=== PATIENT | female | born 1980 | race Caucasian/White ===

== ENCOUNTER → 2016-06-16 | Outpatient (CLI) | payer OTHER ==
[2016-06-16 14:20] LABS: BASO % 0.6 % (0.0-1.0); EOS # 0.1 K/mm3 (0.0-0.50); EOS % 1.3 % (0.0-3.0); LARGE UNSTAINED CELL # 0.1 K/mm3 (0.0-0.4); LARGE UNSTAINED CELL % 1.5 % (0.0-4.0); LYMPH % 36.6 % (24.0-44.0); MEAN CORPUSCULAR HEMOGLOBIN 31.6 pg (27.0-33.0); MEAN CORPUSCULAR HGB CONC 31.9 g/dl (32.0-36.5); MEAN CORPUSCULAR VOLUME 99.1 fl (80.0-96.0); MONO # 0.3 K/mm3 (0.0-0.8); MONO % 4.9 % (0.0-5.0); NEUTROPHILS % 55.1 % (36.0-66.0); PLATELET COUNT, AUTOMATED 250 k/mm3 (150-450); WHITE BLOOD COUNT 5.4 K/mm3 (4.0-10.0)
[2016-06-16 14:36] LABS: ALBUMIN 3.8 GM/DL (3.2-5.2); ALBUMIN/GLOBULIN RATIO 1.06 (1.00-1.93); ALKALINE PHOSPHATASE 87 U/L (45-117); ALT/SGPT 12 U/L (12-78); ANION GAP 6 MEQ/L (8-16); AST/SGOT 9 U/L (15-37); BILIRUBIN,TOTAL 0.6 MG/DL (0.2-1.0); BLOOD UREA NITROGEN 8 MG/DL (7-18); CALCIUM LEVEL 8.6 MG/DL (8.5-10.1); CARBON DIOXIDE LEVEL 29 MEQ/L (21-32); CHLORIDE LEVEL 105 MEQ/L (98-107); CHOLESTEROL LEVEL 154 MG/DL (<200); CREATININE FOR GFR 1.09 MG/DL (0.55-1.02); GLOMERULAR FILTRATION RATE > 60.0 (>60); GLUCOSE, FASTING 91 MG/DL (70-105); POTASSIUM SERUM 4.5 MEQ/L (3.5-5.1); SODIUM LEVEL 140 MEQ/L (136-145); TOTAL PROTEIN 7.4 GM/DL (6.4-8.2); TRIGLYCERIDES LEVEL 73 MG/DL (<150)
== END ==
LOC: M WUC 08:59
PROVIDERS: ATTEND Emergency Medicine
DX: F43.23 Adjustment disorder with mixed anxiety and depressed mood (principal)

== ENCOUNTER 2016-07-14 09:31 | Inpatient (IN) | payer OTHER ==
[~2016-07-14] VITALS: Ht 162.6 cm; Wt 77.2 kg
[2016-07-14] MEDS ORDERED: VITA50003 PO (09:39)
[2016-07-14] MEDS ORDERED: LEXA1TAB2 PO (09:39)
[2016-07-14 10:13] LABS: MEAN CORPUSCULAR HEMOGLOBIN 32.1 pg (27.0-33.0); MEAN CORPUSCULAR HGB CONC 33.9 g/dl (32.0-36.5); MEAN CORPUSCULAR VOLUME 94.7 fl (80.0-96.0); RED CELL DISTRIBUTION WIDTH 12.2 % (11.5-14.5); WHITE BLOOD COUNT 5.6 K/mm3 (4.0-10.0)
[2016-07-14 10:21] LABS: CONTROL LINE HCG INT CTR LINE PRESENT
[2016-07-14 10:38] LABS: ALBUMIN 3.9 GM/DL (3.2-5.2); ALBUMIN/GLOBULIN RATIO 1.08 (1.00-1.93); ALKALINE PHOSPHATASE 80 U/L (45-117); ALT/SGPT 15 U/L (12-78); ANION GAP 6 MEQ/L (8-16); AST/SGOT 15 U/L (15-37); BILIRUBIN,DIRECT 0.2 MG/DL (0.0-0.2); BILIRUBIN,TOTAL 0.7 MG/DL (0.2-1.0); BLOOD UREA NITROGEN 11 MG/DL (7-18); CARBON DIOXIDE LEVEL 28 MEQ/L (21-32); CHLORIDE LEVEL 106 MEQ/L (98-107); CREATININE FOR GFR 1.03 MG/DL (0.55-1.02); GLOMERULAR FILTRATION RATE > 60.0 (>60); GLUCOSE, FASTING 85 MG/DL (70-105); POTASSIUM SERUM 4.1 MEQ/L (3.5-5.1); SODIUM LEVEL 140 MEQ/L (136-145); TOTAL PROTEIN 7.5 GM/DL (6.4-8.2)
[2016-07-14 12:02] LABS: METHADONE URINE NEGATIVE (NEGATIVE)
[2016-07-14] MEDS ORDERED: LORA10TA2 PO (13:56)
[2016-07-14 15:04] VITALS: BP 133/75
[2016-07-14] MEDS ORDERED: MOM 30ML SUSPENSION UDC PO PRN (16:45)
[2016-07-14] MEDS ORDERED: traZODone 50 MG TAB PO PRN (16:45)
[2016-07-14] MEDS ORDERED: MAALOX 30 ML SUSP *UDC PO PRN (16:45)
[2016-07-14] MEDS ORDERED: ACETAMINOPHEN TAB 650MG DOSE (2X325MG) PO PRN (16:45)
[2016-07-15 06:18] VITALS: BP 115/56
--- NOTE | 2016-07-15 09:20 | HPEPDOC ---
Medical History and Physical Date of Admission July 14, 2016 at 13:26 History and Physical PCP: Dr Sun. ATTENDING: Dr. Bola Bae HPI: 36 yo F admitted to [facility] for depressive disorder, being medically examined today. No acute medical complaints today. Denies any fevers, chills, weakness, fatigue, GREGORIO, CP, SOB, cough, palpitations, abdominal pain, N/V/D or changes in bowel or bladder habits. PMHx: Depression Anxiety Self-mutilation Allergic rhinitis Vitamin D deficiency PSHX: Tubal ligation SOCHX: Resides in: [facility] Marital Status: Kids: 6 Employment: Unemployed Tobacco use: Denies ETOH: Denies Illicit Drugs: Denies IV Drug Use: Denies Tattoos done unprofessionally: Denies FAMHX: Mother: Alive, depression Father: Alive, well Siblings: 2 brothers Alive, well Children: Alive, well Unexpected deaths due to medical reasons: None. ROS: As noted in HPI, otherwise 11pt ROS of systems reviewed and remarkable only for LMP 07/07/16 PE: GEN: 36 yo F, appears stated age. Well-nourished, well developed. No acute distress. Alert and oriented x 3. Pleasant, interactive. HEENT: Normocephalic, atraumatic. Pupils are equal, round, and reactive to light. Extraocular movements are intact. No nystagmus appreciated. Sclera are nonicteric. Conjunctiva without injection. Nose midline. Nasal turbinates without bogginess. EACs both patent BL. TMs both visualized and mccauley with good cone of light, no bulging or erythema. No facial asymmetry. Moist mucous membranes. Dentition fair. Pharynx pink and moist, no cobblestoning. Neck supple , trachea midline. No lymphadenopathy or thyromegaly appreciated. CHEST: Regular rate and rhythm, +S1, +S2 LUNGS: Clear to auscultation bilaterally. No wheezes, rales, or rhonchi. Breathing appears symmetric and easy. Patient is speaking in full sentences. No accessory muscle use. ABD: Round, soft, non-tender, non-distended. +Bowel sounds throughout. No rebound or guarding. No costovertebral angle tenderness. EXT: Pulses 2+ bilaterally dorsalis pedis and radial. No lower extremity edema appreciated. SKIN: [place], dry, warm. Capillary refill <2sec. No rashes. Superficial healing lacerations are noted left shoulder. No erythema, no drainage. NEURO: Alert and oriented x 3. Cranial nerves III-XII are intact. No focal deficits appreciated. EKG: Pending. A&P: HPI: 36 yo F admitted to [facility] for depressive disorder 1. Psych. Plan per Psychiatry. Obtain baseline EKG to assure the safety of psychiatric medications as they can prolong the QT interval. 2. Superficial laceration. Appears to be healing well. Monitor. 3. Follow up with PCP on discharge. 4. Vitamin D deficiency. Continue Drisdol weekly. Update vitamin D level. 5. Allergic rhinitis. Continue Claritin 10 mg daily as needed. 6. Karolyn BAKER present throughout exam. Vital Signs Vital Signs Date Time Temp Pulse Resp B/P (MAP) Pulse Ox O2 Delivery O2 Flow Rate FiO2 07/15/16 06:18 98.8 66 16 115/56 (75) 07/14/16 15:04 97 Room Air Laboratory Data Labs 24H Laboratory Tests 2 07/14/16 10:04: Anion Gap 6L, Glomerular Filtration Rate > 60.0, Calcium Level 9.0, Aspartate Amino Transf (AST/SGOT) 15, Alanine Aminotransferase (ALT/SGPT) 15, Alkaline Phosphatase 80, Total Bilirubin 0.7, Direct Bilirubin 0.2, Total Protein 7.5, Albumin 3.9, Albumin/Globulin Ratio 1.08, Thyroid Stimulating Hormone (TSH) 1.260, Human Chorionic Gonadotropin, Qual NEGATIVE, Salicylates Level < 1.7L, Acetaminophen Level < 2.0L, Ethyl Alcohol Level < 0.003 07/14/16 11:15: Urine Amphetamines Screen NEGATIVE, Urine Benzodiazepines Screen NEGATIVE, Urine Opiates Screen NEGATIVE, Urine Methadone Screen NEGATIVE, Urine Barbiturates Screen NEGATIVE, Urine Phencyclidine Screen NEGATIVE, Urine Cocaine Metabolite Screen NEGATIVE, Urine Cannabinoids Screen NEGATIVE CBC/BMP Laboratory Tests 07/14/16 10:04 Red Blood Count 4.41, Mean Corpuscular Volume 94.7, Mean Corpuscular Hemoglobin 32.1, Mean Corpuscular Hemoglobin Concent 33.9, Red Cell Distribution Width 12.2 Home Medications Scheduled Ergocalciferol (Vitamin D) 50,000 Unit Cap, 50,000 UNIT PO 1XWK wednesdays Escitalopram Oxalate (Lexapro) 20 Mg Tab, 20 MG PO DAILY pt has not been taking as prescribed Scheduled PRN Loratadine (Loratadine) 10 Mg Tab, 10 MG PO DAILY PRN for allergies Allergies Coded Allergies: No Known Drug Allergy (Verified Allergy, Unknown, 07/14/16) Gladys Madden July 15, 2016 09:20
[2016-07-15] MEDS ORDERED: LORATADINE 10 MG TAB PO PRN (09:30)
[2016-07-15] MEDS: VENLAFAXINE **XR** 37.5 MG CAPSULE PO SCH (12:07)
--- NOTE | 2016-07-15 13:26 | MHHPE ---
DATE OF ADMISSION: 07/14/2016 LEGAL STATUS ON ADMISSION: 9.39 legal status. CHIEF COMPLAINT: "I have been feeling depressed and I have suicidal thoughts." HISTORY OF PRESENT ILLNESS: 36-year-old female with a history of depression, admitted to our unit in a 9.39 legal status. According to the chart, the patient was evaluated at the emergency department for increased depression, suicidal ideation. Feelings were escalating for the past 2 weeks. The patient stated that she has a bottle of older pills that are narcotics and she was considering overdosing. The patient also reported that she has a remote history of cutting herself and also says that she was cutting nightly for the last month or so. Said that on one occasion she cut deeply enough that probably was in need of sutures, but she did not come to the hospital. She is motivated for treatment. The patient denies auditory or visual hallucinations or delusions. The patient also denies the use of drugs or alcohol. The patient has been admitted three times in the past for depression and suicidal ideation. Her is deployed since March and is supposed to return in January of this year. The patient reports that she has a friend that lives around town that is part of her support now that her is away. During the interview today, the patient reports feeling depressed with anhedonia/lost interest, no energy. The patient feels overwhelmed. She has six children at home, ages 14, 11, 10, 8, 6, and 4. The patient also reports negative thinking and her self esteem fluctuations, as does her appetite. The patient reports that she wakes up a lot. The patient also reports mood swings, says that when she has a down swing that it can last for about 6 months. She says that she has been treated with medications, but "I stopped taking it because of side effects." The patient reports intermittent suicidal thoughts along with these thoughts. Reports thinking like, "nothing will get better." She also says that she feels numb and disconnected. This is related to the cutting. She says that she started in college and did it frequently, but then she stopped and she reports that she started one month ago and has been doing it nightly. The patient is insightful and willing to get help. The patient is unable to contract for safety and is afraid that she may end up hurting herself. PAST MEDICAL HISTORY: The patient has no acute medical problems. No known drug allergies. PAST PSYCHIATRIC HISTORY: As above, the patient has been diagnosed of depression. Has three admissions to inpatient psychiatry, one in 1995, 2004 and 2013 for depression and suicidal ideation. FAMILY HISTORY: Positive for depression on her mother and she thinks her brother also has depression. No substance abuse in the family. SUBSTANCE ABUSE HISTORY: The patient denies any current or past problems with drugs or alcohol. SOCIAL HISTORY: The patient was raised by both of her parents. The patient reports a completely normal childhood with no abuse or neglect. The patient reports being shy with tendency to low self esteem. She graduated high school and went to college. She graduated and she got a Bachelor's degree in psychology and a Master's on behavioral analysis. She has been for the last 15 years and has six children. She is the of an active duty soldier. Her is deployed since February of this year. The patient reports that the relationship with her is supportive and they have no problems. REVIEW OF SYSTEMS: CONSTITUTIONAL: No weight loss, fever, chills, weakness or fatigue. HEENT: No visual loss, blurry vision, double vision, or yellow sclerae. No hearing loss, sneezing, congestion, runny nose or sore throat. SKIN: No rash or itching. CARDIOVASCULAR: No chest pain, chest pressure, chest discomfort, palpitations, or edema. RESPIRATORY: No shortness of breath, cough or sputum. GASTROINTESTINAL: No anorexia, nausea, vomiting, or diarrhea. No abdominal pain or blood. GENITOURINARY: No burning or pain on urination. NEUROLOGICAL: No headache, dizziness, syncope, paralysis, ataxia, numbness or tingling. MUSCULOSKELETAL: No muscle or back pain, joint pain or stiffness. HEMATOLOGIC: No anemia, bleeding or bruising. LYMPHATICS: No history of splenectomy. ENDOCRINOLOGIC: No reports of sweating, cold or heat intolerance. No polyuria, polydipsia. ALLERGIES: No history of asthma, hives, eczema or rhinitis. PHYSICAL EXAMINATION: As per physician's certified ophthalmic surgical assistant. LABS AT ADMISSION: CBC is unremarkable. CMP within normal limits. TSH is unremarkable. test is negative. Urine drug screen is negative. Blood alcohol level is negative. MENTAL STATUS EXAMINATION: The patient is dressed in [facility]. Patient is cooperative during the interview. Speech is soft and monotone. Has fair eye contact. Mood is depressed and anxious. Affect is labile, at times tearful. Patient is oriented to time, place, person and situation. Maintains attention and concentration correctly. Instant recall, instant and remote memory are intact. Thought processes are coherent, logical and goal directed. Patient does not have auditory or visual hallucinations. Patient does not have paranoid, persecutory, somatic, grandiose, or restorationist delusions. Patient is denying suicidal or homicidal ideation. Judgment and insight are fair. DIAGNOSES: [place] I: Major depressive disorder. Sav[place] II: Deferred. Sav[place] III: None acute. INITIAL TREATMENT PLAN: Patient was admitted on legal status. Complete history was obtained. With her permission, family will be contacted and database will be expanded. Her medication regimen will be reviewed and changed accordingly. She will be provided with protected environment. She will be treated with individual, group and milieu therapy. She will also receive supportive psychoeducation. Discharge planning will commence immediately. Length of stay will be between 5 and 7 days. Outpatient followup will be strongly recommended. The treatment plan will focus initially on depression and risk for suicide.
[2016-07-15 18:42] VITALS: BP 119/60
[2016-07-16 07:03] VITALS: BP 129/81
[2016-07-16] MEDS: VENLAFAXINE **XR** 37.5 MG CAPSULE PO SCH (08:48)
[2016-07-16] MEDS ORDERED: VENLAFAXINE **XR** 37.5 MG CAPSULE PO ONE (12:00)
--- NOTE | 2016-07-16 15:10 | IPN ---
DATE: 07/16/2016 A 36-year-old female with history of depression admitted on 30 legal status. The patient had increased symptoms of depression, suicidal ideation, and was displaying self-injurious behavior. SUBJECTIVE: "I feel about the same." OBJECTIVE: No major changes from yesterday at admission. The patient has tolerated well the initial dose of Effexor and denies any side effects. The patient also said that she slept better with the help of trazodone. No evidence of psychotic features. The patient is able to contract for safety while in the hospital. MENTAL STATUS EXAMINATION: The patient is dressed in [facility]. The patient is cooperative. She has fair eye contact. Speech is slow and monotone. Mood is depressed and anxious. Affect is congruent with mood. No delusions or hallucinations. Memory, attention and concentration are fair. The patient reports intermittent suicidal thoughts. No homicidal ideation. Insight and judgment is limited. ASSESSMENT: 1. Depression. 2. Suicidal ideation. 3. Self cutting. PLAN: 1. Increase Effexor to 75 mg by mouth every morning. 2. Continue with trazodone 50 mg by mouth at bedtime as needed for insomnia. 3. Continue close observation. 4. Continue medication management, individual and group therapy.
[2016-07-16 18:00] VITALS: BP 118/71
--- NOTE | 2016-07-16 20:42 | ECGEPIP ---
Stationary ECG Study [facility] Test Date: 2016-07-15 Pat Name: HOLLEY ANDREA Department: Room: [place] [address] Gender: F Scarf [employer] Anneal Operator: ALFREDA : 1980 Requested By: Gladys Madden Order Number: [id number] Reading MD: Bola Julien Measurements Intervals [place] Rate: 53 P: 60 [place]: 129 QRS: 74 QRSD: 101 T: 80 QT: 429 QTc: 404 Interpretive Statements SINUS BRADYCARDIA Nonspecific ST-T abnormalities. No prior ECG available for comparison at the time of interpretation. Electronically Signed On 07-16-2016 20:42:01 EDT by Bola Julien
[2016-07-17 06:00] VITALS: BP 117/68
[2016-07-17] MEDS: VENLAFAXINE **XR** 75MG CAPSULE PO SCH (08:48)
--- NOTE | 2016-07-17 16:18 | IPN ---
DATE: 07/17/2016 A 36-year-old female with a history of depression, admitted for severe depression, suicidal ideation and self-injurious behavior. SUBJECTIVE: "I'm feeling better." OBJECTIVE: The patient is improving slowly, continues depressed, but she is no longer labile or displaying psychomotor retardation. The patient is interacting better with other patients and staff. The patient is denying side effects from the medications. No evidence of psychotic features. MENTAL STATUS EXAMINATION: The patient is dressed in [facility]. The patient is cooperative during exam, has fair eye contact. Speech is slow and monotone. Mood is depressed and anxious but slightly improved from yesterday. Affect is congruent with mood. No delusions or hallucinations. Memory, attention and concentration are fair. The patient is able to contract for safety and denies suicidal or homicidal ideation during the interview. The patient has no urge to cut in the last 24 hours. Insight and judgment is limited. ASSESSMENT: 1. Depression. 2. Suicidal ideation. 3. Self cutting. PLAN: 1. Continue with Effexor XR 75 mg by mouth every morning. 2. Continue with trazodone 50 mg by mouth nightly as needed for insomnia. 3. Continue medication management, individual and group therapy.
[2016-07-17 18:00] VITALS: BP 129/75
[2016-07-18 06:10] VITALS: BP 110/53
[2016-07-18] MEDS: VENLAFAXINE **XR** 75MG CAPSULE PO SCH (08:34)
[2016-07-18 18:11] VITALS: BP 130/63
--- NOTE | 2016-07-19 03:00 | IPN ---
DATE OF SERVICE: 07/18/2016 The patient states "I'm doing pretty good." She says her mood is about a 4/10 with the closer to 10 as the most depressed. She says that she slept fairly good with the trazodone and has no complaints. MENTAL STATUS EXAMINATION: This patient is alert and oriented times three. Eye contact is good. She is verbally spontaneous. There is no formal thought disorder. Mood is "better." Affect full range and appropriate. She is not psychotic. Concentration is fair. Memory intact. Insight and judgment is fair. DIAGNOSIS: Major depressive disorder, recurrent, severe without psychotic symptoms. TREATMENT PLAN: At this point, we will further observe and evaluate the patient for continued resolution of suicidal ideations and for further stabilization of her mood and we will continue to titrate her medications as indicated.
[2016-07-19 06:00] VITALS: BP 110/53
[2016-07-19] MEDS: VENLAFAXINE **XR** 75MG CAPSULE PO SCH (08:22)
[2016-07-19 18:00] VITALS: BP 130/78
[2016-07-20 06:42] VITALS: BP 100/62
[2016-07-20] MEDS: VENLAFAXINE **XR** 75MG CAPSULE PO SCH (08:02)
[2016-07-20] MEDS ORDERED: VENL75CA PO (10:17)
--- NOTE | 2016-07-20 15:29 | MHDS ---
DATE OF ADMISSION: 07/14/2016 DATE OF DISCHARGE: 07/20/2016 LEGAL STATUS AT ADMISSION: 9.39 legal status. HISTORY OF PRESENT ILLNESS: A 36-year-old female with history of depression admitted to our unit under 9.39 legal status. According to the chart, the patient was evaluated at our emergency department (ED) for increased depression and suicidal ideation. The patient reported that her symptoms were escalating for the past two weeks. She stated that she had a bottle of older pills that are narcotics and she was considering overdosing. The patient also reported that she has a remote history of cutting herself and she was cutting herself nightly for the last month or so. She said that on one occasion she cut deeply enough that she probably needed to have sutures. However, she did not come to the hospital. She was motivated for treatment. The patient denied any auditory or visual hallucinations. There was no evidence of delusions. The patient also denied any use of drugs or alcohol. The patient has been admitted three times in the past for depression and suicidal ideation. Her is currently deployed. He is in active duty and he is supposed to return in January 2017. since March and is supposed to return in January of this year. During the interview, the patient reports feeling depressed, anhedonia, low energy. The patient feels overwhelmed. She has six children at home, ages 14, 11, 10, 8, 6, and 4. The patient reports negative thinking and her self-esteem fluctuates. Her appetite also fluctuates. She reports that she wakes up frequently during the night. The patient also reports mood swings and that when she has a low swing, she can stay depressed for six months. The patient reports that she has been treated with medications in the past, but "I stopped taking them because of side effects." The patient reports intermittent suicidal thoughts during the interview. The patient states that she has a tendency to think, "nothing will get better." The patient also feels numb and disconnected. These symptoms are related to her cutting. The patient reports that during college she did it frequently, but then she stopped "for awhile," and restarted approximately a month ago. She has been doing it nightly. She wants to get help. She was unable to contract for safety and she was afraid that she may end up hurting herself. LABORATORY DATA AT ADMISSION: Her CBC was unremarkable. CMP within normal limits. TSH is within normal limits. HCG is negative. Urine drug screen negative. Blood alcohol level is negative. HOSPITAL COURSE: After the first evaluation, the patient was started on Effexor XR 37.5 mg by mouth every morning. She tolerated well the medication. She took trazodone 50 mg as needed for insomnia the first night but then she did not require to take this medication. With the above medication, the patient was stabilized. The patient had no complications during this hospital admission. She was motivated for treatment. Her mood improved rather quick after the hospitalization. At the moment of discharge, the patient is insightful and motivated. She wants to continue taking her treatment and following up appointments. She is denying side effects from the medication. There is no evidence of psychotic symptoms. No auditory or visual hallucinations or delusions. MENTAL STATUS EXAMINATION AT DISCHARGE: The patient is dressed in [facility]. The patient is calm and cooperative. Speech is clear, coherent with normal rate and is spontaneous. The patient has fair eye contact. Mood is euthymic. Affect is congruent with mood and appropriate. The patient is oriented to time, place, person and situation. She maintains attention and concentration correctly. Instant recall, recent and remote memory are intact. Thought processes are coherent, logical, and goal-directed. The patient does not have auditory or visual hallucinations. The patient does not have paranoid, persecutory, somatic, grandiose, or orthodoxy delusions. The patient denies suicidal or homicidal ideation. Insight and judgment are fair. DISCHARGE MEDICATIONS: Effexor XR 75 mg by mouth every morning. DIAGNOSES: AXIS I: Major depressive disorder. AXIS II: Deferred. AXIS III: Nonacute. CONDITION AT DISCHARGE: Stable. No suicidal or homicidal ideation. No auditory or visual hallucinations. No delusions. INSTRUCTIONS TO THE PATIENT: The patient is to continue taking her medications as prescribed and followup appointments. She is advised to maintain absolute sobriety from drugs and alcohol. The patient has scheduled appointment for medication management, individual and group therapy, and primary care physician.
== END 2016-07-20 12:25 | disposition home or self-care (01) | DRG 885 ==
LOC: M ED 10:01 → M ED INP 13:26 → M PSY 15:00
PROVIDERS: ADMIT Psychiatry & Neurology Psychiatry; ATTEND Psychiatry & Neurology Psychiatry
DX: F33.2 Major depressive disorder, recurrent severe without psychotic features (principal); R45.851 Suicidal ideations; E55.9 Vitamin D deficiency, unspecified; J30.9 Allergic rhinitis, unspecified; Z79.899 Other long term (current) drug therapy; Z98.51 Tubal ligation status; Z91.5 Personal history of self-harm

== ENCOUNTER → 2017-01-26 | Outpatient (CLI) | payer OTHER ==
[~2017-01-26] MED LIST: LEXA1TAB2 PO; LORA10TA2 PO; PERC5TAB12 PO; VENL75CA2 PO; VIIB40TA PO; VITA1CAP40 PO; ZOFR4TAB3 PO
--- NOTE | 2017-01-26 16:24 | REP ---
KUB: Two views. History: Right-sided abdominal pain. No comparison views. Findings: A vaginal tampon is noted in place. There is a 2.4 cm peripherally calcified nodular density in the right upper quadrant of the abdomen. This moves with respect to the renal contour on the two-view submitted and is most compatible with gallbladder calculus. The bowel gas pattern is unremarkable. There are two metallic clamps projecting over the left mid and left upper abdomen. The patient gives a history of bilateral tubal ligation. These are compatible with dislodged tubal ligation clamps. Flank stripes and psoas margins are intact. No mass organomegaly is seen. Impression: 1. 2.4 cm calcification right upper quadrant consistent with gallstone or gallstones. 2. Dislodged tubal ligation clamps projecting in the left mid and upper abdomen. 3. Otherwise unremarkable abdominal films. Signed by Hernán Montenegro MD 01/27/2017 02:43 P
[2017-01-26 16:37] LABS: BASO # 0.1 10^3/uL (0.0-0.2); BASO % 0.9 % (0.0-1.0); EOS # 0.1 10^3/uL (0.0-0.50); EOS % 2.1 % (0.0-3.0); IMMATURE GRANULOCYTE % 0.3 % (0-0); LYMPH # 2.6 10^3/uL (1.5-4.5); LYMPH % 37.9 % (24.0-44.0); MEAN CORPUSCULAR HGB CONC 34.3 g/dl (32.0-36.5); MEAN CORPUSCULAR VOLUME 93.3 fl (80.0-96.0); MONO # 0.5 10^3/uL (0.0-0.8); MONO % 7.1 % (0.0-5.0); NEUTROPHILS # 3.5 10^3/uL (1.8-7.7); NEUTROPHILS % 51.7 % (36.0-66.0); PLATELET COUNT, AUTOMATED 232 10^3/uL (150-450); WHITE BLOOD COUNT 6.7 10^3/uL (4.0-10.0)
[2017-01-26 17:08] LABS: ALBUMIN/GLOBULIN RATIO 1.11 (1.00-1.93); ALKALINE PHOSPHATASE 79 U/L (45-117); ALT/SGPT 15 U/L (12-78); AMYLASE 75 U/L (25-115); ANION GAP 5 MEQ/L (8-16); AST/SGOT 13 U/L (7-37); BILIRUBIN,TOTAL 0.5 MG/DL (0.2-1.0); BLOOD UREA NITROGEN 8 MG/DL (7-18); CALCIUM LEVEL 8.7 MG/DL (8.5-10.1); CARBON DIOXIDE LEVEL 28 MEQ/L (21-32); CHLORIDE LEVEL 109 MEQ/L (98-107); GLOMERULAR FILTRATION RATE > 60.0 (>60); GLUCOSE, FASTING 88 MG/DL (70-105); POTASSIUM SERUM 4.2 MEQ/L (3.5-5.1); SODIUM LEVEL 142 MEQ/L (136-145); TOTAL PROTEIN 7.6 GM/DL (6.4-8.2)
== END ==
LOC: M WUC 14:44
PROVIDERS: ATTEND Physician Assistant
DX: R10.11 Right upper quadrant pain (principal)

== ENCOUNTER → 2017-01-28 | Outpatient (CLI) | payer OTHER ==
--- NOTE | 2017-01-28 10:07 | REP ---
RIGHT UPPER QUADRANT ULTRASOUND: Real-time sonographic evaluation of the right upper quadrant performed. The gallbladder is contracted and contains multiple stones. There does not appear to be significant gallbladder wall thickening or acute edematous change. There is no pericholecystic fluid. There is no intrahepatic or extrahepatic biliary dilatation, common bile duct measuring 3 mm in diameter. Liver and pancreas demonstrate homogeneous echotexture with no gross mass. Right kidney demonstrates no hydronephrosis or nephrolithiasis with normal size at 10 cm in length. The visualized abdominal aorta is normal in caliber. IMPRESSION: Contracted gallbladder containing multiple calculi with no acute wall thickening, pericholecystic fluid or biliary dilatation. Signed by Rudy Garcia MD 01/28/2017 10:36 A
== END ==
LOC: M RAD 07:35
PROVIDERS: ATTEND Physician Assistant
DX: K80.20 Calculus of gallbladder without cholecystitis without obstruction (principal)

== ENCOUNTER 2017-01-29 14:30 | Emergency (ER) | payer OTHER ==
[~2017-01-29] VITALS: Ht 162.6 cm; Wt 77.3 kg
[~2017-01-29 14:30] MED LIST changes: -PERC5TAB12 PO; -VIIB40TA PO; -ZOFR4TAB3 PO
[2017-01-29] MEDS ORDERED: VIIB40TA PO (14:43)
[2017-01-29] MEDS ORDERED: ONDANSETRON 4 MG ORAL DISINTEGRATING TAB (S0181) PO ONE (15:15)
[2017-01-29] MEDS ORDERED: NS 1,000 ML IV ONE (15:15)
[2017-01-29 15:24] LABS: BASO # 0.1 10^3/uL (0.0-0.2); BASO % 1.2 % (0.0-1.0); EOS # 0.1 10^3/uL (0.0-0.50); EOS % 1.9 % (0.0-3.0); IMMATURE GRANULOCYTE % 0.3 % (0-0); LYMPH # 3.1 10^3/uL (1.5-4.5); LYMPH % 44.8 % (24.0-44.0); MEAN CORPUSCULAR HEMOGLOBIN 31.5 pg (27.0-33.0); MEAN CORPUSCULAR HGB CONC 33.9 g/dl (32.0-36.5); MEAN CORPUSCULAR VOLUME 92.9 fl (80.0-96.0); MONO # 0.5 10^3/uL (0.0-0.8); MONO % 7.1 % (0.0-5.0); NEUTROPHILS # 3.1 10^3/uL (1.8-7.7); NEUTROPHILS % 44.7 % (36.0-66.0); PLATELET COUNT, AUTOMATED 246 10^3/uL (150-450); RED CELL DISTRIBUTION WIDTH 11.9 % (11.5-14.5); WHITE BLOOD COUNT 6.9 10^3/uL (4.0-10.0)
[2017-01-29 15:50] LABS: ALBUMIN 4.1 GM/DL (3.2-5.2); ALBUMIN/GLOBULIN RATIO 1.14 (1.00-1.93); ALKALINE PHOSPHATASE 77 U/L (45-117); ALT/SGPT 15 U/L (12-78); ANION GAP 8 MEQ/L (8-16); AST/SGOT 12 U/L (7-37); BILIRUBIN,TOTAL 0.5 MG/DL (0.2-1.0); BLOOD UREA NITROGEN 10 MG/DL (7-18); CALCIUM LEVEL 8.6 MG/DL (8.5-10.1); CARBON DIOXIDE LEVEL 24 MEQ/L (21-32); CHLORIDE LEVEL 107 MEQ/L (98-107); CREATININE FOR GFR 1.03 MG/DL (0.55-1.02); GLOMERULAR FILTRATION RATE > 60.0 (>60); GLUCOSE, FASTING 90 MG/DL (70-105); POTASSIUM SERUM 4.2 MEQ/L (3.5-5.1); SODIUM LEVEL 139 MEQ/L (136-145); TOTAL PROTEIN 7.7 GM/DL (6.4-8.2)
[2017-01-29 16:01] LABS: MUCUS, URINE RFX SMALL (NEGATIVE); SPECIFIC GRAVITY UR AUTO RFX 1.014 (1.002-1.035); SQUAM EPITHELIAL CELL UR AURFX 3 /HPF (0-6)
[2017-01-29] MEDS ORDERED: ZOFR4TAB3 PO (16:14)
[2017-01-29] MEDS ORDERED: PERC5TAB12 PO (16:15)
[2017-01-29 16:24] VITALS: BP 126/63
== END 2017-01-29 16:27 | disposition home or self-care (01) ==
LOC: M ED 14:30
DX: K80.70 Calculus of gallbladder and bile duct without cholecystitis without obstruction (principal); F41.9 Anxiety disorder, unspecified; F33.9 Major depressive disorder, recurrent, unspecified; Z79.899 Other long term (current) drug therapy

== ENCOUNTER → 2017-02-10 | Outpatient (REF) | payer OTHER | LOC: M LAB REF 16:16 | DX: Z11.3 Encounter for screening for infections with a predominantly sexual mode of transmission (principal); Z01.419 Encounter for gynecological examination (general) (routine) without abnormal findings ==

== ENCOUNTER 2017-03-03 06:24 | Day surgery (SDC) | payer OTHER ==
[2017-03-03] MEDS: LR 1,000 ML IV ×2 (07:00→07:10)
[2017-03-03] MEDS ORDERED: PROPOFOL 200 MG/20 ML VIAL As Ordered (07:59)
[2017-03-03] MEDS ORDERED: ROCURONIUM BROMIDE 50 MG/5 ML VIAL As Ordered (07:59)
[2017-03-03] MEDS ORDERED: LIDOCAINE 2% INJ 100 MG/5 ML SDV (FOR ANES.) As Ordered (07:59)
[2017-03-03] MEDS ORDERED: fentaNYL 250 MCG/5 ML INJECTION (J3010) As Ordered (07:59)
[2017-03-03] MEDS ORDERED: MIDAZOLAM INJ 2 MG/2 ML VIAL (J2250) As Ordered (07:59)
[2017-03-03] MEDS ORDERED: LIDOCAINE W/EPINEPHRINE 1% 20ML VIAL As Ordered (08:22)
[2017-03-03] MEDS ORDERED: dexameTHASONE 4 MG/ML 1ML VIAL (J1100) As Ordered (08:55)
[2017-03-03] MEDS ORDERED: GLYCOPYRROLATE INJ 0.2 MG/ML 2 ML VIAL As Ordered (08:55)
[2017-03-03] MEDS ORDERED: ONDANSETRON 4MG/2ML VIAL (J2405) As Ordered (08:55)
[2017-03-03] MEDS ORDERED: NEOSTIGMINE 10 MG/10 ML VIAL (J2710) As Ordered (08:55)
[2017-03-03] MEDS ORDERED: KETOROLAC 60 MG/2 ML VIAL (J1885) As Ordered (08:55)
[2017-03-03] MEDS ORDERED: HYDROmorphone HCL 1 MG/ML SYRINGE (J1170) As Ordered (09:31)
[2017-03-03] MEDS: HYDROmorphone HCL 1 MG/ML SYRINGE (J1170) IV ×3 (09:37→09:55)
[2017-03-03] MEDS ORDERED: NORCO, ANEXSIA 5/325MG TABLET (HYDROcodone/ACETAMINOPHEN) PO (09:45)
[2017-03-03] MEDS ORDERED: METOCLOPRAMIDE INJ 10MG/2ML VIAL (J2765) IV (09:45)
[2017-03-03] MEDS ORDERED: ONDANSETRON 4MG/2ML VIAL (J2405) IV (09:45)
[2017-03-03] MEDS: fentaNYL 100 MCG/2 ML INJECTION (J3010) IV ×2 (09:50)
[2017-03-03] MEDS: PERCOCET 5MG/325MG TAB PO (10:33)
== END 2017-03-03 12:06 | disposition home or self-care (01) ==
LOC: M SDC 06:24
DX: K80.10 Calculus of gallbladder with chronic cholecystitis without obstruction (principal); F41.9 Anxiety disorder, unspecified; F32.9 Major depressive disorder, single episode, unspecified; Z98.51 Tubal ligation status
CPT/HCPCS: 47562

== ENCOUNTER → 2017-03-09 | Outpatient (CLI) | payer OTHER ==
[2017-03-09 13:11] LABS: BASO % 0.6 % (0.0-1.0); HEMATOCRIT 42.9 % (36.0-47.0); HEMOGLOBIN 14.3 g/dl (12.0-16.0); IMMATURE GRANULOCYTE % 0.4 % (0-0); LYMPH # 2.3 10^3/uL (1.5-4.5); LYMPH % 29.1 % (24.0-44.0); MEAN CORPUSCULAR HEMOGLOBIN 31.4 pg (27.0-33.0); MEAN CORPUSCULAR HGB CONC 33.3 g/dl (32.0-36.5); MEAN CORPUSCULAR VOLUME 94.3 fl (80.0-96.0); MONO % 6.3 % (0.0-5.0); NEUTROPHILS # 4.8 10^3/uL (1.8-7.7); NEUTROPHILS % 60.6 % (36.0-66.0); PLATELET COUNT, AUTOMATED 277 10^3/uL (150-450); RED BLOOD COUNT 4.55 10^6/uL (4.00-5.40); RED CELL DISTRIBUTION WIDTH 12.3 % (11.5-14.5); WHITE BLOOD COUNT 7.9 10^3/uL (4.0-10.0)
[2017-03-09 13:12] LABS: BASO # 0.1 10^3/uL (0.0-0.2); EOS # 0.2 10^3/uL (0.0-0.50); MONO # 0.5 10^3/uL (0.0-0.8)
[2017-03-09 13:49] LABS: ERYTHROCYTE SEDIMENTATION RATE 7 mm/hr (0-20)
== END ==
LOC: M WUC 11:45
DX: L02.412 Cutaneous abscess of left axilla (principal)
CPT/HCPCS: 85025

== ENCOUNTER → 2017-04-16 | Outpatient (CLI) | payer OTHER ==
[~2017-04-16] MED LIST changes: +ISOVUE-370 76% 100ML VIAL (Q9967) As Ordered; -LEXA1TAB2 PO; -LORA10TA2 PO; -VENL75CA2 PO; -VITA1CAP40 PO
== END ==
LOC: M RADPRO 12:16
DX: Z98.51 Tubal ligation status (principal)
CPT/HCPCS: 58340